=== PATIENT | male | born 1945 | race Caucasian/White ===

== ENCOUNTER 2020-03-29 10:02 | Inpatient (IN) | payer MEDICARE ==
[~2020-03-29] VITALS: Ht 172.7 cm; Wt 113.4 kg
--- NOTE | 2020-03-29 10:05 | NUR ---
NAWAF Estrada FROM HOME SENT BY PMD FOR LOWER ABDOMINAL PAIN X 1 WEEK. NO N/V. NO DIARRHEA. AWAITING FOR MD GEORGES
--- NOTE | 2020-03-29 10:25 | NUR ---
IV LINE ESTABLISHED. BLOOD DRAWN AND URINE COLLECTED. SENT TO LAB
[2020-03-29 10:42] LABS: BASOPHILS # (AUTO) 0.1 /CMM (0.0-0.2); BASOPHILS % (AUTO) 0.4 % (0.0-2.0); EOSINOPHILS % (AUTO) 0.1 % (0.0-6.0); HEMATOCRIT 49 % (39-51); HEMOGLOBIN 16.4 g/dL (13.5-17.5); LYMPHOCYTES # (AUTO) 0.8 /CMM (0.8-4.8); LYMPHOCYTES % (AUTO) 6.4 % (20.0-44.0); MEAN CORPUSCULAR HGB CONC 34 g/dl (31.0-36.0); MEAN CORPUSCULAR VOLUME 91 fL (80-96); MONOCYTES # (AUTO) 0.5 /CMM (0.1-1.30); MONOCYTES % (AUTO) 4.1 % (2.0-12.0); NEUTROPHILS # (AUTO) 10.7 /CMM (1.8-8.9); PLATELET COUNT (AUTO) 196 /CMM (150-450); RED BLOOD CELL COUNT(AUTO) 5.37 MIL/uL (4.5-6.0)
--- NOTE | 2020-03-29 10:42 | NUR ---
covid swab test collected and sent to lab
[2020-03-29 10:46] LABS: APPEARANCE,URINE Slightly Cloudy (CLEAR); BILIRUBIN,URINE MODERATE (NEGATIVE); BLOOD, URINE Trace-intact Ery/uL (NEGATIVE); COLOR,URINE Dark (YELLOW); KETONES,URINE 15 (NEGATIVE); LEUKOCYTE ESTERASE ,URINE Negative (NEGATIVE); NITRITE, URINE Positive (NEGATIVE); PH,URINE 5.5 (5.0-8.0); PROTEIN,URINE 100 mg/dl (NEGATIVE); UGLUCOSE Negative (NEGATIVE); UROBILINOGEN,URINE 0.2 EU/dL (0.2)
[2020-03-29 10:55] LABS: BACTERIA,URINE Moderate /HPF (None Seen); MUCUS,URINE Moderate /LPF (None Seen); SQUAMOUS EPITHELIAL CELL,UR Few /HPF (None Seen); URINE AMORPHOUS URATE Few /HPF (None Seen)
[2020-03-29 11:28] LABS: ALANINE AMINOTRANSFERASE 23 U/L (12-78); ALKALINE PHOSPHATASE 60 U/L (46-116); ASPARTATE AMINOTRANSFERASE 12 U/L (15-37); BILIRUBIN,DIRECT 0.4 mg/dL (0.0-0.2); BILIRUBIN,TOTAL 1.4 mg/dL (0.2-1.0); CALCIUM, SERUM 9.2 mg/dL (8.5-10.1); CARBON DIOXIDE 27 mmol/L (21-32); CHLORIDE 100 mmol/L (98-107); CREATININE 1.3 mg/dL (0.6-1.3); GLUCOSE 128 mg/dL (74-106); LIPASE 36 U/L (73-393); POTASSIUM 3.5 mmol/L (3.5-5.1); SODIUM SERUM 138 mmol/L (136-145); TOTAL PROTEIN, SERUM 8.1 g/dL (6.4-8.2); UREA NITROGEN, BLOOD 32 mg/dL (7-18)
[2020-03-29] MEDS ORDERED: IOHEXOL-300 100 ML VIAL IV ONE (11:52)
[2020-03-29] MEDS ORDERED: IV NS 0.9% 250 ML IV ONE (11:52)
[2020-03-29] MEDS ORDERED: CT SWABBABLE VALVE TRANS SET 1 EA INFUS.SET MC ONE (11:52)
[2020-03-29] MEDS ORDERED: IV NS 0.9% 1,000 ML BAG IV ONE (12:00)
[2020-03-29] MEDS ORDERED: AMLO10TA7 PO (12:34)
[2020-03-29] MEDS ORDERED: MULT-754 PO (12:34)
[2020-03-29] MEDS ORDERED: HYDR-3976 PO (12:34)
[2020-03-29] MEDS ORDERED: CLON0.5T4 PO (12:34)
[2020-03-29] MEDS ORDERED: ESCI10TA PO (12:34)
[2020-03-29] MEDS ORDERED: TIZA4TAB5 PO (12:34)
[2020-03-29] MEDS ORDERED: ASPI-1169 PO (12:34)
[2020-03-29] MEDS ORDERED: AMOX1TAB16 PO (12:34)
[2020-03-29] MEDS ORDERED: METR-147 PO (12:34)
[2020-03-29] MEDS ORDERED: CEFTRIAXONE 1 G in IV D5W 50 ML IV ONE ×2 (13:00→15:30)
[2020-03-29] MEDS ORDERED: METRONIDAZOLE 500MG/ NS 100ML 100 ML IV ONE (13:00)
[2020-03-29] MEDS ORDERED: Z GUARD REMEDY 2 OZ OINT TP PRN (13:30)
[2020-03-29] MEDS ORDERED: ACETAMINOPHEN 325 MG TABLET PO PRN (13:30)
[2020-03-29] MEDS ORDERED: IV NS 0.9% 1,000 ML IV PRN (13:30)
[2020-03-29] MEDS ORDERED: MAG HYDROX/AL HYDROX/SIMETH 30 ML UDC PO PRN (13:30)
[2020-03-29] MEDS ORDERED: TEMAZEPAM 15 MG CAPSULE PO PRN (13:30)
[2020-03-29] MEDS ORDERED: MAGNESIUM HYDROXIDE 30 ML UDC PO PRN (13:30)
[2020-03-29] MEDS ORDERED: ONDANSETRON HCL/PF 4 MG/2 ML VIAL IVP PRN (13:30)
--- NOTE | 2020-03-29 14:28 | NUR ---
Pt will go to Tele 320-1
--- NOTE | 2020-03-29 14:39 | NUR ---
report given to andres BURCH for ALEKSEY
--- NOTE | 2020-03-29 15:20 | NUR ---
RN NOTE THE PATIENT IS RECEIVED FROM ER ON A GURNEY. ALERT AND ORIENTED X2. ABLE TO MAKE NEEDS KNOWN VERBALLY. DENIES SOB. RESPIRATION REGULAR AND UNLABORED. COMPLAINTS ABDOMINAL PAIN 09/11. PATIENT IS TRANSFERRED TO BED. BED ALARM ON. CALL LIGHT WITHIN REACH. WILL CONTINUE TO MONITOR.
[2020-03-29] MEDS ORDERED: CEFTRIAXONE 1 G in IV D5W 50 ML IV SCH (15:30)
[2020-03-29] MEDS ORDERED: CEFTRIAXONE 2 G in IV D5W 100 ML IV SCH (15:30)
[2020-03-29] MEDS: ENOXAPARIN SODIUM 40 MG/0.4 ML DISP.SYRIN SQ SCH (15:53)
[2020-03-29] MEDS: MORPHINE SULFATE INJ 2 MG/ML DISP.SYRIN IV PRN ×2 (16:38→21:58)
[2020-03-29 17:00] VITALS: BP 151/78
--- NOTE | 2020-03-29 19:00 | NUR ---
RN NOTE THE PATIENT ALERT AND ORIENTED X2. DENIES PAIN. IN ROOM AIR AND SATURATION IS AT 94%. DENIES SOB. RESPIRATION REGULAR AND UNLABORED. PATIENT IN NO APPARENT DISTRESS. LEFT HAND G 22 PATENT AND NS INFUSING PER ORDER. NO S/S INFILTRATION NOTED. BED LOW AND LOCKED. SIDE RAILS UP X3. CALL LIGHT WITHIN REACH. WILL ENDORSE TO [facility] OPERATOR.
--- NOTE | 2020-03-29 20:00 | NUR ---
MS/RN OPENING NOTE Patient awake in bed, A/O x2. Breathing even, clear, unlabored on room air. Skin warm pink dry, appropriate for ethnicity. Bruise noted on right and discoloration noted left 4th toe. IV site right wrist 18g running NS 75 ml/hr, no redness or infiltration. Patient on full liquid diet. Abdomen round soft, non-tender. Patient voiding via BSC. Urine output clear, yellow, without difficulty. BS hypoactive. Bed in low position, wheels locked, side rails up x2, call light within reach.
[2020-03-29 20:37] VITALS: BP 165/121
[2020-03-29] MEDS: METRONIDAZOLE 500MG/ NS 100ML 500 MG in PREMIX 1 EA IV SCH (21:52)
--- NOTE | 2020-03-29 21:58 | NUR ---
MS/RN NOTE Patient c/o pain level 9 in back and head. Administered PRN morphine as ordered. BP 165/121 P117. Will continue to monitor.
[2020-03-29] MEDS ORDERED: CLONIDINE HCL 0.1 MG TABLET PO PRN (22:30)
--- NOTE | 2020-03-29 22:37 | NUR ---
MS/RN NOTE Patient BP 165/121. Notified hospitalist. New med order for metoprolol and clonidine PRN. Orders reviewed and carried out.
[2020-03-29] MEDS: METOPROLOL TARTRATE 25 MG TABLET PO SCH (23:12)
[2020-03-29 23:41] VITALS: BP 186/103
[2020-03-30] MEDS: METRONIDAZOLE 500MG/ NS 100ML 500 MG in PREMIX 1 EA IV SCH ×3 (04:01→21:21)
--- NOTE | 2020-03-30 06:04 | NUR ---
MS/RN CLOSING NOTE Patient awake in bed, A/O x2. Breathing even, clear, unlabored on room air. Skin warm pink dry, appropriate for ethnicity. Bruise noted on right and discoloration noted left 4th toe. IV site left wrist 18g running NS 75 ml/hr, no redness or infiltration. Patient on full liquid diet. Abdomen round soft, left lower quadrant tenderness noted, no bowel movement this shift. Patient voiding via BSC, x4. Urine output clear, yellow, without difficulty. Bed in low position, wheels locked, side rails up x2, call light within reach.
[2020-03-30] MEDS: PANTOPRAZOLE 40 MG TABLET.DR PO SCH (06:52)
[2020-03-30 06:54] LABS: BASOPHILS % (AUTO) 0.3 % (0.0-2.0); EOSINOPHILS % (AUTO) 0.1 % (0.0-6.0); HEMATOCRIT 49 % (39-51); HEMOGLOBIN 16.3 g/dL (13.5-17.5); LYMPHOCYTES # (AUTO) 1.1 /CMM (0.8-4.8); LYMPHOCYTES % (AUTO) 10.2 % (20.0-44.0); MEAN CORPUSCULAR HGB CONC 33 g/dl (31.0-36.0); MEAN CORPUSCULAR VOLUME 91 fL (80-96); MONOCYTES # (AUTO) 0.6 /CMM (0.1-1.30); MONOCYTES % (AUTO) 5.4 % (2.0-12.0); NEUTROPHILS # (AUTO) 9.2 /CMM (1.8-8.9); PLATELET COUNT (AUTO) 194 /CMM (150-450); WHITE BLOOD COUNT (AUTO) 10.9 K/uL (4.3-11.0)
[2020-03-30 07:27] LABS: THYROID STIMULATING HORMONE 1.201 uIU/mL (0.358-3.74)
[2020-03-30 08:02] LABS: CALCIUM, SERUM 9.3 mg/dL (8.5-10.1); CREATININE 0.8 mg/dL (0.6-1.3); MAGNESIUM 2.4 mg/dL (1.8-2.4); PHOSPHORUS 2.4 mg/dL (2.5-4.9); POTASSIUM 3.2 mmol/L (3.5-5.1)
[2020-03-30] MEDS: METOPROLOL TARTRATE 25 MG TABLET PO SCH ×2 (08:31→21:22)
[2020-03-30] MEDS: ENOXAPARIN SODIUM 40 MG/0.4 ML DISP.SYRIN SQ SCH (08:32)
[2020-03-30] MEDS ORDERED: POTASSIUM CHLORIDE 20 MEQ POWDER PACKET GT ONE (11:00)
[2020-03-30] MEDS: MORPHINE SULFATE INJ 2 MG/ML DISP.SYRIN IV PRN ×2 (11:33→12:14)
[2020-03-30] MEDS: CEFTRIAXONE 2 G in IV D5W 100 ML IV SCH (12:29)
[2020-03-30] MEDS ORDERED: K PHOS NEUTRAL 250 MG TABLET PO ONE (17:30)
--- NOTE | 2020-03-30 18:28 | NUR ---
rn notes patient remains on room air, no sob noted. No confusion and with 1;1 sitter at all times. Potassium replaced. Plan is to have abx going at this time, Dr. Najera has not scheduled surgery yet at this time. bed at the lowest setting, call light within reach, side rails up x2.
--- NOTE | 2020-03-30 19:43 | NUR ---
MS RN OPENING NOTE: Patient in bed awake and alert. Patient able to follow commands. Patient on room air and breathing well, no SOB or acute respiratory distress noted. IV access noted on right wrist, 18 gauge, dry and intact, no redness, or infiltration. On 1:1 sitter. Safety measures in place, bed is in the lowest level, bed is locked, alarm is on, side rails x2 are up, and call light is within reach. Will continue to monitor.
[2020-03-30 20:00] VITALS: BP 180/108
[2020-03-30 22:25] VITALS: BP 164/101
--- NOTE | 2020-03-31 00:22 | NUR ---
MS RN NOTE: Patient BP 183/86, HR 82. Administered PRN Catapres per MD order. Will continue to monitor.
[2020-03-31 03:39] VITALS: BP 155/91
--- NOTE | 2020-03-31 03:39 | NUR ---
MS RN NOTE: Rechecked patient BP, 155/91, HR 83. Will continue to monitor.
[2020-03-31] MEDS: METRONIDAZOLE 500MG/ NS 100ML 500 MG in PREMIX 1 EA IV SCH ×2 (04:52→12:27)
--- NOTE | 2020-03-31 06:50 | NUR ---
MS RN CLOSING NOTE: Patient in bed sleeping comfortably. All needs met. Patient breathing well with no SOB or respiratory distress. Safety precaution in place, bed is in the lowest level, alarm is on, brakes are on, side rails x2 are up, and call light is within reach. Will endorse to next shift.
--- NOTE | 2020-03-31 07:58 | NUR ---
MS RN OPENING NOTES PATIENT IS CALM AND COOPERATIVE A/O X 3. WITH NO SIGNS OF DISTRESS IN ROOM AIR. IV L WRIST #20G INTACT RUNNING NS AT 75 MLS/HR. SAFETY MEASURES ARE APPLIED, BED IS LOCKED AND LOW POSITION, SIDE RAILS UP X 2. CALL LIGHT WITHIN REACH. WILL CONTINUE TO MONITOR.
[2020-03-31 08:00] VITALS: BP 152/100
--- NOTE | 2020-03-31 08:00 | NUR ---
PATIENT COMPLAINED OF ABDOMEN PAIN 10/ BP 152/100 HR 91 RR 20 SPO2 96%. GIVING MORPHINE PRN. WILL CONTINUE TO MONITOR.
[2020-03-31 08:12] LABS: BASOPHILS # (AUTO) 0.1 /CMM (0.0-0.2); BASOPHILS % (AUTO) 0.6 % (0.0-2.0); EOSINOPHILS % (AUTO) 1.6 % (0.0-6.0); HEMATOCRIT 44 % (39-51); HEMOGLOBIN 14.8 g/dL (13.5-17.5); LYMPHOCYTES # (AUTO) 1.1 /CMM (0.8-4.8); LYMPHOCYTES % (AUTO) 13.1 % (20.0-44.0); MEAN CORPUSCULAR HGB CONC 33 g/dl (31.0-36.0); MEAN CORPUSCULAR VOLUME 91 fL (80-96); MONOCYTES # (AUTO) 0.7 /CMM (0.1-1.30); MONOCYTES % (AUTO) 8.3 % (2.0-12.0); NEUTROPHILS # (AUTO) 6.2 /CMM (1.8-8.9); NEUTROPHILS % (AUTO) 76.4 % (43.0-81.0); PLATELET COUNT (AUTO) 191 /CMM (150-450); RED BLOOD CELL COUNT(AUTO) 4.88 MIL/uL (4.5-6.0); WHITE BLOOD COUNT (AUTO) 8.2 K/uL (4.3-11.0)
[2020-03-31] MEDS: MORPHINE SULFATE INJ 2 MG/ML DISP.SYRIN IV PRN ×2 (08:14→14:06)
[2020-03-31 08:19] LABS: CALCIUM, SERUM 8.3 mg/dL (8.5-10.1); CREATININE 0.8 mg/dL (0.6-1.3); MAGNESIUM 2.3 mg/dL (1.8-2.4); PHOSPHORUS 2.3 mg/dL (2.5-4.9); POTASSIUM 3.1 mmol/L (3.5-5.1)
[2020-03-31] MEDS: METOPROLOL TARTRATE 25 MG TABLET PO SCH (08:48)
[2020-03-31] MEDS: PANTOPRAZOLE 40 MG TABLET.DR PO SCH (08:48)
[2020-03-31] MEDS: ENOXAPARIN SODIUM 40 MG/0.4 ML DISP.SYRIN SQ SCH (08:50)
[2020-03-31] MEDS: POTASSIUM CHLORIDE 20 MEQ POWDER PACKET PO SCH ×2 (10:35→11:50)
[2020-03-31] MEDS ORDERED: NEUTRA PHOS 1 POWD.PACKET PO ONE (13:30)
[2020-03-31] MEDS ORDERED: CIPR500T5 PO (13:41)
[2020-03-31] MEDS ORDERED: METR500T PO (13:41)
[2020-03-31] MEDS ORDERED: METO25TA20 PO (13:41)
[2020-03-31] MEDS: CEFTRIAXONE 2 G in IV D5W 100 ML IV SCH (14:05)
[2020-03-31 16:00] VITALS: BP 140/101
--- NOTE | 2020-03-31 18:00 | NUR ---
DISCHARGE NOTES PATIENT VITALS ARE WITHIN NORMAL LIMIT WITH NO SIGNS OF DISTRESS IN ROOM AIR AND NO PAIN AT THIS TIME. PATIENT TOLERATED DIET VERY WELL. DISCHARGE INSTRUCTIONS WERE GIVEN AND VERBALIZED TO THE PATIENT AND PATIENT VERBALIZED UNDERSTANDING TO FOLLOW UP WITH PCP IN 1 WEEK AND CONTINUE WITH PRESCRIBED MEDICATIONS. BELONGING LIST WAS COMPLETED AND SIGNED. IV WAS REMOVED WITH NO SIGNS OF BLEEDING AND COVERED. DISCHARGE PHOTOS WERE TAKEN. PATIENT LEFT VIA WHEELCHAIR WITH JESÚS Enciso TO THE LOBBY AND GOT PICKED UP BY FAMILY MEMBER.
== END 2020-03-31 17:52 | disposition home or self-care (01) | DRG 871 ==
LOC: ER 10:11 → MED 14:34 → TELE 16:00 → MED 16:04
PROVIDERS: ADMIT Nurse Practitioner Acute Care; ATTEND Student in an Organized Health Care Education/Training Program
DX: A41.9 Sepsis, unspecified organism (principal); N17.0 Acute kidney failure with tubular necrosis; K57.32 Diverticulitis of large intestine without perforation or abscess without bleeding; N39.0 Urinary tract infection, site not specified; E87.2 Acidosis; R79.89 Other specified abnormal findings of blood chemistry; I16.0 Hypertensive urgency; E78.5 Hyperlipidemia, unspecified; F32.9 Major depressive disorder, single episode, unspecified; N40.1 Benign prostatic hyperplasia with lower urinary tract symptoms; K76.9 Liver disease, unspecified; N28.9 Disorder of kidney and ureter, unspecified; K40.90 Unilateral inguinal hernia, without obstruction or gangrene, not specified as recurrent; I10 Essential (primary) hypertension; E11.9 Type 2 diabetes mellitus without complications; E78.00 Pure hypercholesterolemia, unspecified; Z79.82 Long term (current) use of aspirin; Z79.899 Other long term (current) drug therapy; B96.89 Other specified bacterial agents as the cause of diseases classified elsewhere; N40.0 Benign prostatic hyperplasia without lower urinary tract symptoms; K76.89 Other specified diseases of liver; N28.1 Cyst of kidney, acquired; K82.8 Other specified diseases of gallbladder; K21.9 Gastro-esophageal reflux disease without esophagitis
CPT/HCPCS: 36415; 80048-TC; 80061-TC; 80076-TC; 81000-TC; 83605-TC; 83690-TC; 83735-TC; 84100-TC; 84443-TC; 85025-TC; 85730-TC; 87040-TC; 87081-TC; 87086-TC; 97112-TC; 97116-TC; 97530-TC; A4216; A4624; C9803; G0378; J0696; J1650; J2270; J7030; J7050; J7060; Q9967

== ENCOUNTER 2023-06-06 09:26 | Inpatient (IN) | payer MEDICARE ==
[~2023-06-06] VITALS: Ht 175.3 cm; Wt 100.7 kg
[~2023-06-06 09:26] MED LIST: AMLO-213 PO; AMOX1TAB16 PO; ASPI-1169 PO; CIPR500T5 PO; CLON0.5T4 PO; ESCI10TA PO; HYDR-3976 PO; METO25TA20 PO; METR-147 PO; METR500T PO; MULT-754 PO; TIZA4TAB5 PO
[2023-06-06 10:02] LABS: BASOPHILS # (AUTO) 0.1 K/uL (0.0-0.2); BASOPHILS % (AUTO) 0.8 % (0.0-2.0); EOSINOPHILS # (AUTO) 0.4 K/uL (0.0-0.7); EOSINOPHILS % (AUTO) 4.5 % (0.0-6.0); HEMATOCRIT 41 % (39-51); HEMOGLOBIN 13.9 g/dL (13.5-17.5); LYMPHOCYTES # (AUTO) 1.9 K/uL (0.8-4.8); MEAN CORPUSCULAR HEMOGLOBIN 29 PG (26.0-33.0); MEAN CORPUSCULAR HGB CONC 34 g/dl (31.0-36.0); MEAN CORPUSCULAR VOLUME 87 fL (80-96); MONOCYTES # (AUTO) 0.6 K/uL (0.1-1.30); MONOCYTES % (AUTO) 7.2 % (2.0-12.0); NEUTROPHILS # (AUTO) 5.6 K/uL (1.8-8.9); NEUTROPHILS % (AUTO) 65.5 % (43.0-81.0); PLATELET COUNT (AUTO) 232 K/uL (150-450); RED BLOOD CELL COUNT(AUTO) 4.73 MIL/uL (4.5-6.0); RED CELL DISTRIBUTION WIDTH 15.7 % (11.5-15.0); WHITE BLOOD COUNT (AUTO) 8.5 K/uL (4.3-11.0)
[2023-06-06 10:09] LABS: CALCIUM, SERUM 9.8 mg/dL (8.5-10.1); CARBON DIOXIDE 24 mmol/L (21-32); CHLORIDE 100 mmol/L (98-107); CREATININE 1.2 mg/dL (0.6-1.3); GLUCOSE 111 mg/dL (74-106); POTASSIUM 3.3 mmol/L (3.5-5.1); SODIUM SERUM 137 mmol/L (136-145); UREA NITROGEN, BLOOD 20 mg/dL (7-18)
[2023-06-06] MEDS ORDERED: GABA-532 PO (10:34)
[2023-06-06] MEDS ORDERED: ATOR10TA PO (10:34)
[2023-06-06] MEDS ORDERED: DOXA4TAB2 PO (10:34)
[2023-06-06] MEDS ORDERED: TIZA-180 PO (10:34)
[2023-06-06] MEDS ORDERED: CLON0.5T4 PO (10:34)
[2023-06-06] MEDS ORDERED: ESCI20TA PO (10:34)
[2023-06-06] MEDS ORDERED: ACETAMINOPHEN 325 MG TABLET PO PRN (17:00)
[2023-06-06] MEDS ORDERED: MAGNESIUM HYDROXIDE 30 ML UDC PO PRN (17:00)
[2023-06-06] MEDS ORDERED: MAG HYDROX/AL HYDROX/SIMETH 30 ML UDC PO PRN (17:00)
[2023-06-06] MEDS ORDERED: Z GUARD REMEDY 4 OZ OINT TP PRN (17:00)
[2023-06-06] MEDS ORDERED: MORPHINE SULFATE INJ 2 MG/ML DISP.SYRIN IV PRN (17:00)
[2023-06-06] MEDS ORDERED: ONDANSETRON HCL/PF 4 MG/2 ML VIAL IVP PRN (17:00)
[2023-06-06] MEDS ORDERED: NITROGLYCERIN 0.4 MG/TAB BOTTLE SL PRN (17:00)
[2023-06-06] MEDS ORDERED: ZOLPIDEM TARTRATE 5 MG TABLET PO PRN (17:00)
[2023-06-06] MEDS ORDERED: HYDROCODONE/APAP 5/325MG TABLET PO PRN (17:00)
[2023-06-06] MEDS ORDERED: ASPIRIN EC 81 MG TABLET.DR PO ONE (17:48)
[2023-06-06] MEDS: ASPIRIN EC 81 MG TABLET.DR PO SCH (17:56)
[2023-06-06] MEDS: DOXAZOSIN MESYLATE (4 MG) 4 MG TABLET PO SCH (18:32)
[2023-06-06 20:00] VITALS: BP 152/81; TEMP 98.6; O2SAT 100
[2023-06-06] MEDS: clonazePAM 0.5 MG TABLET PO SCH (21:17)
[2023-06-06] MEDS: ATORVASTATIN 10 MG TABLET PO SCH (21:17)
[2023-06-06] MEDS: GABAPENTIN 100 MG CAPSULE PO SCH (21:17)
[2023-06-06] MEDS: TIZANIDINE HCL 4 MG TABLET PO SCH (21:17)
[2023-06-06] MEDS: ENOXAPARIN SODIUM 40 MG/0.4 ML DISP.SYRIN SQ SCH (21:32)
[2023-06-07] VITALS: BP 130/81; TEMP 98.4; O2SAT 100
[2023-06-07 04:00] VITALS: BP 152/71; TEMP 97.9; O2SAT 99
[2023-06-07] MEDS: TIZANIDINE HCL 4 MG TABLET PO SCH ×3 (04:25→20:14)
[2023-06-07 06:54] LABS: BASOPHILS % (AUTO) 0.6 % (0.0-2.0); EOSINOPHILS # (AUTO) 0.3 K/uL (0.0-0.7); EOSINOPHILS % (AUTO) 3.9 % (0.0-6.0); HEMATOCRIT 41 % (39-51); HEMOGLOBIN 13.9 g/dL (13.5-17.5); LYMPHOCYTES # (AUTO) 1.7 K/uL (0.8-4.8); LYMPHOCYTES % (AUTO) 22.5 % (20.0-44.0); MEAN CORPUSCULAR HEMOGLOBIN 29 PG (26.0-33.0); MEAN CORPUSCULAR HGB CONC 34 g/dl (31.0-36.0); MEAN CORPUSCULAR VOLUME 86 fL (80-96); MONOCYTES # (AUTO) 0.4 K/uL (0.1-1.30); MONOCYTES % (AUTO) 5.9 % (2.0-12.0); NEUTROPHILS # (AUTO) 4.9 K/uL (1.8-8.9); NEUTROPHILS % (AUTO) 67.1 % (43.0-81.0); PLATELET COUNT (AUTO) 214 K/uL (150-450); RED BLOOD CELL COUNT(AUTO) 4.77 MIL/uL (4.5-6.0); RED CELL DISTRIBUTION WIDTH 15.7 % (11.5-15.0); WHITE BLOOD COUNT (AUTO) 7.4 K/uL (4.3-11.0)
[2023-06-07 07:18] LABS: CALCIUM, SERUM 9.2 mg/dL (8.5-10.1); CREATININE 0.9 mg/dL (0.6-1.3); MAGNESIUM 2.3 mg/dL (1.8-2.4); PHOSPHORUS 3.2 mg/dL (2.5-4.9)
[2023-06-07 07:46] LABS: THYROID STIMULATING HORMONE 2.839 uIU/mL (0.358-3.74)
[2023-06-07] MEDS: PANTOPRAZOLE 40 MG TABLET.DR PO SCH (07:48)
[2023-06-07 08:00] VITALS: BP 140/77; TEMP 97.6; O2SAT 94
[2023-06-07 08:21] LABS: POTASSIUM 2.6 mmol/L (3.5-5.1)
[2023-06-07] MEDS: ASPIRIN EC 81 MG TABLET.DR PO SCH (09:12)
[2023-06-07] MEDS: DOXAZOSIN MESYLATE (4 MG) 4 MG TABLET PO SCH (09:12)
[2023-06-07] MEDS: ESCITALOPRAM OXALATE (10 MG) 10 MG TABLET PO SCH (09:12)
[2023-06-07 10:00] VITALS: BP 149/96; TEMP 97.7; O2SAT 99
[2023-06-07] MEDS: POTASSIUM CL. PREMIX PERIPHER. 50 ML IV SCH ×4 (11:00→13:05)
[2023-06-07 12:00] VITALS: BP 149/96; TEMP 97.7; O2SAT 99
[2023-06-07] MEDS ORDERED: OLANZAPINE 10 MG VIAL IM ONE (14:30)
[2023-06-07 16:00] VITALS: BP 140/76; TEMP 97.8; O2SAT 98
[2023-06-07] MEDS ORDERED: POTASSIUM CHLORIDE 20 MEQ POWDER PACKET PO ONE (20:00)
[2023-06-07] MEDS: clonazePAM 0.5 MG TABLET PO SCH (21:22)
[2023-06-07] MEDS: ATORVASTATIN 10 MG TABLET PO SCH (21:22)
[2023-06-07] MEDS: GABAPENTIN 100 MG CAPSULE PO SCH (21:22)
[2023-06-07] MEDS: ENOXAPARIN SODIUM 40 MG/0.4 ML DISP.SYRIN SQ SCH (21:26)
[2023-06-08] MEDS: TIZANIDINE HCL 4 MG TABLET PO SCH ×4 (05:27→20:08)
[2023-06-08] MEDS: PANTOPRAZOLE 40 MG TABLET.DR PO SCH (07:30)
[2023-06-08] MEDS: DOXAZOSIN MESYLATE (4 MG) 4 MG TABLET PO SCH (09:00)
[2023-06-08] MEDS: ESCITALOPRAM OXALATE (10 MG) 10 MG TABLET PO SCH (09:00)
[2023-06-08] MEDS: ASPIRIN EC 81 MG TABLET.DR PO SCH (09:00)
[2023-06-08 11:20] LABS: BASOPHILS # (AUTO) 0.1 K/uL (0.0-0.2); EOSINOPHILS # (AUTO) 0.5 K/uL (0.0-0.7); EOSINOPHILS % (AUTO) 7.1 % (0.0-6.0); HEMATOCRIT 40 % (39-51); HEMOGLOBIN 13.6 g/dL (13.5-17.5); LYMPHOCYTES # (AUTO) 1.7 K/uL (0.8-4.8); LYMPHOCYTES % (AUTO) 23.8 % (20.0-44.0); MEAN CORPUSCULAR HEMOGLOBIN 30 PG (26.0-33.0); MEAN CORPUSCULAR HGB CONC 34 g/dl (31.0-36.0); MEAN CORPUSCULAR VOLUME 88 fL (80-96); MONOCYTES # (AUTO) 0.5 K/uL (0.1-1.30); MONOCYTES % (AUTO) 6.8 % (2.0-12.0); NEUTROPHILS # (AUTO) 4.4 K/uL (1.8-8.9); NEUTROPHILS % (AUTO) 61.3 % (43.0-81.0); PLATELET COUNT (AUTO) 214 K/uL (150-450); RED BLOOD CELL COUNT(AUTO) 4.56 MIL/uL (4.5-6.0); RED CELL DISTRIBUTION WIDTH 16.2 % (11.5-15.0); WHITE BLOOD COUNT (AUTO) 7.1 K/uL (4.3-11.0)
[2023-06-08 11:35] LABS: ALBUMIN 3.2 g/dL (3.4-5.0); BILIRUBIN,TOTAL 0.5 mg/dL (0.2-1.0); CALCIUM, SERUM 9.1 mg/dL (8.5-10.1); MAGNESIUM 2.5 mg/dL (1.8-2.4); PHOSPHORUS 4.7 mg/dL (2.5-4.9); POTASSIUM 3.1 mmol/L (3.5-5.1); TOTAL PROTEIN, SERUM 6.7 g/dL (6.4-8.2)
[2023-06-08] MEDS ORDERED: POTASSIUM CHLORIDE 20 MEQ TAB.PRT.SR PO ONE (13:30)
[2023-06-08] MEDS: ENOXAPARIN SODIUM 40 MG/0.4 ML DISP.SYRIN SQ SCH (20:55)
[2023-06-08] MEDS: ATORVASTATIN 10 MG TABLET PO SCH (22:03)
[2023-06-08] MEDS: clonazePAM 0.5 MG TABLET PO SCH (22:03)
[2023-06-08] MEDS: GABAPENTIN 100 MG CAPSULE PO SCH (22:04)
[2023-06-09] MEDS: TIZANIDINE HCL 4 MG TABLET PO SCH (04:09)
[2023-06-09] MEDS: ASPIRIN EC 81 MG TABLET.DR PO SCH (08:47)
[2023-06-09] MEDS: ESCITALOPRAM OXALATE (10 MG) 10 MG TABLET PO SCH (08:47)
[2023-06-09] MEDS: DOXAZOSIN MESYLATE (4 MG) 4 MG TABLET PO SCH (08:48)
[2023-06-09] MEDS: PANTOPRAZOLE 40 MG TABLET.DR PO SCH (08:49)
[2023-06-09 10:11] VITALS: BP 147/70; TEMP 97.8; O2SAT 98
[2023-06-09 11:04] VITALS: BP 118/79; TEMP 98.6
== END 2023-06-09 12:10 | DRG 392 ==
LOC: ER 09:28 → TRANSITION 15:53 → TELE1 17:26 → MEDSG1 06-07 12:54
DX: K21.9 Gastro-esophageal reflux disease without esophagitis (principal); N17.9 Acute kidney failure, unspecified; F03.93 Unspecified dementia, unspecified severity, with mood disturbance; K40.90 Unilateral inguinal hernia, without obstruction or gangrene, not specified as recurrent; I10 Essential (primary) hypertension; F32.A Depression, unspecified; N40.0 Benign prostatic hyperplasia without lower urinary tract symptoms; E11.9 Type 2 diabetes mellitus without complications; E78.00 Pure hypercholesterolemia, unspecified; Z79.899 Other long term (current) drug therapy; F41.0 Panic disorder [episodic paroxysmal anxiety]; M89.8X9 Other specified disorders of bone, unspecified site; N28.1 Cyst of kidney, acquired; K76.89 Other specified diseases of liver; E87.6 Hypokalemia; E86.9 Volume depletion, unspecified; Z78.1 Physical restraint status
CPT/HCPCS: 36415; 70450-TC; 71045-TC; 80048-TC; 80053-TC; 80061-TC; 83735-TC; 84100-TC; 84443-TC; 84484-TC; 85025-TC; 93307-TC; A4223; G0378; J1650; J2270; J2405; J3480; J3490; J7050